=== PATIENT | female | born 1980 | race Caucasian/White ===

== ENCOUNTER 2016-11-26 17:15 | Emergency (ER) | payer OTHER ==
--- NOTE | 2016-11-26 21:51 | ED PDOC ---
HPI: Female Pain Time Seen by Provider: 11/26/16 17:56 Chief Complaint (Nursing): Female Genitourinary Chief Complaint (Provider): Female Genitourinary History Per: Patient History/Exam Limitations: no limitations Onset/Duration Of Symptoms: Days (x3) Additional Complaint(s): Marly Isaacs, 36 year old female presents to the ED for suprapubic left lower quadrant pain occurring for 3 days prior to arrival. The patient states her menstrual period is a few days late which prompted her to take a test at home, which resulted as negative for . She has no associated symptoms of nausea, vomiting, diarrhea, vaginal bleeding or discharge. The patient reports attempted to see an OBGYN but was unable to get an appointment. PMD: none provided Past Medical History Reviewed: Historical Data, Nursing Documentation, Vital Signs Vital Signs: Last Vital Signs Temp 98.6 F 11/26/16 17:39 Pulse 74 11/26/16 17:39 Resp 18 11/26/16 17:39 BP 120/68 11/26/16 17:39 Pulse Ox 99 11/26/16 17:39 - Medical History PMH: No Chronic Diseases - Family History Family History: States: Unknown Family Hx - Social History Alcohol: None Drugs: Denies - Home Medications Home Medications: Ambulatory Orders Medication Instructions Recorded Ibuprofen [Motrin Tab] 800 mg PO Q6 #30 tab 11/26/16 - Allergies Allergies/Adverse Reactions: Allergies Allergy/AdvReac Type Severity Reaction Status Date / Time No Known Allergies Allergy Verified 11/26/16 17:59 Review of Systems ROS Statement: Except As Marked, All Systems Reviewed And Found Negative Gastrointestinal: Positive for: Abdominal Pain (suprapubic left lower quadrant pain). Negative for: Nausea, Vomiting, Diarrhea Genitourinary Female: Negative for: Vaginal Discharge, Vaginal Bleeding Physical Exam - Reviewed Nursing Documentation Reviewed: Yes Vital Signs Reviewed: Yes - Physical Exam Appears: Positive for: Well, Non-toxic, No Acute Distress. Negative for: Uncomfortable (patient appears comfortable ) Head Exam: Positive for: ATRAUMATIC, NORMAL INSPECTION, NORMOCEPHALIC Skin: Positive for: Normal Color, Warm, Dry Eye Exam: Positive for: EOMI, Normal appearance, PERRL ENT: Positive for: Normal ENT Inspection Neck: Positive for: Normal, Painless ROM, Supple Cardiovascular/Chest: Positive for: Regular Rate, Rhythm, Chest Non Tender Respiratory: Positive for: Normal Breath Sounds. Negative for: Respiratory Distress Gastrointestinal/Abdominal: Positive for: Soft, Tenderness (mild left lower quadrant tenderness). Negative for: Guarding, Rebound Back: Positive for: Normal Inspection Extremity: Positive for: Normal ROM. Negative for: Deformity Neurologic/Psych: Positive for: Alert, Oriented - ECG O2 Sat by Pulse Oximetry: 99 (RA) Pulse Ox Interpretation: Normal Medical Decision Making Medical Decision Making: Impression: Ovarian Cyst with or without rupture versus less likely ovarian torsion Plan: * ED Urine Dipstick (POC) Stat * ED urine (POC) Stat * Transvaginal [US] Stat * Motrin Tab 600 mg PO Stat * Reevaluation IMPRESSION: 2 hemorrhagic cysts within the right ovary. A single septated cyst within the left ovary. Followup to resolution is recommended (in 1-2 menstrual cycles). Pt. improved. Results given to patient and instructed to followup with [facility]. Told to return for worsening or concerning symptoms. Scribe Attestation: Documented by Fabiola Cheek, acting as a scribe for Kemal Holman MD. Provider Scribe Attestation: All medical record entries made by the Scribe were at my direction and personally dictated by me. I have reviewed the chart and agree that the record accurately reflects my personal performance of the history, physical exam, medical decision making, and the department course for this patient. I have also personally directed, reviewed, and agree with the discharge instructions and disposition. Disposition - Clinical Impression Clinical Impression: Ovarian cyst - Disposition [facility] Disposition Time: 22:50 Condition: STABLE Prescriptions: Ibuprofen [Motrin Tab] 800 mg PO Q6 #30 tab Instructions: Ovarian Cyst (ED)
[2016-11-26 22:53] VITALS: BP 125/80; PULSE 65; RESP 16; TEMP 98.1
[2016-11-26 23:55] VITALS: O2SAT 99
--- NOTE | 2016-11-27 08:33 | US ---
HISTORY: LLQ pain, r/o ruptured ovarian cyst. Menstrual status: Regular cycles, LMP 10/24/2016 COMPARISON: None available. TECHNIQUE: Transvaginal only. Real -time technique with 2D, duplex and color Doppler FINDINGS: UTERUS: Measures 4.2 x 5 x 6.7 cm. Normal in size and appearance. No fibroid or other mass lesion seen. ENDOMETRIUM: Measures 12.7 mm in diameter. Endometrial hypertrophy. No focal or diffuse findings CERVIX: No cervical abnormality identified. RIGHT OVARY: Measures 3.4 x 5.4 x 6.3 cm. No solid mass. Normal flow. Complex hemorrhagic cysts: 2.5 x 2.6 cm. 2.4 x 3 cm. LEFT OVARY: Measures 1.6 x 1.6 x 2.4 cm. No solid mass. Normal flow. Multiple subcentimeter follicles. Solitary cyst 1 x 2 cm containing internal septations. FREE FLUID: No significant free fluid noted. OTHER FINDINGS: None. IMPRESSION: Two bilateral simple and complex/ debris laden or hemorrhagic cysts. Unremarkable uterus and hypertrophy of the endometrial echo complex.
== END 2016-11-26 22:54 | disposition home or self-care (01) ==
LOC: H.ER 17:15
DX: N83.201 Unspecified ovarian cyst, right side (principal)